=== PATIENT | female | born 1980 | race Hispanic/Latino ===

== ENCOUNTER 2017-07-26 22:45 | Inpatient (IN) | payer OTHER ==
[2017-07-26 22:46] VITALS: BMI 31.6
--- NOTE | 2017-07-26 23:21 | C.PDOC ---
History Of Present Illness 36 year old female presents to the ER as a transfer from [place] for admission. Patient has a Hx of PTSD years ago, she has been on benzodiazepines but ran out of her prescription. She was able to get an appointment with a psychiatrist for the end of August and had a small number of pills she was able to take sporadically but ran out and states she has been panicking, anxious, and having flashbacks. Denies physical complaints at this time. Patient was medically clear by [facility]. Time Seen by Provider: 07/26/17 22:48 Chief Complaint (Nursing): Psychiatric Evaluation History Per: Patient History/Exam Limitations: no limitations Onset/Duration Of Symptoms: Days Current Symptoms Are (Timing): Still Present Suicide/Self Injury Attempted (Context): None Associated Symptoms: Anxiety Involuntary Hold By: None Recent travel outside of the [place] States: No Past Medical History Reviewed: Historical Data, Nursing Documentation, Vital Signs Vital Signs: Last Vital Signs Temp 98.2 F 07/26/17 22:53 Pulse 80 07/26/17 22:53 Resp 20 07/26/17 22:53 BP 115/75 07/26/17 22:53 Pulse Ox 96 07/26/17 23:29 - Medical History PMH: Post Traumatic Stress Disorder Surgical History: Cholecystectomy Family History: States: Unknown Family Hx - Social History Hx Alcohol Use: Yes Hx Substance Use: No Review Of Systems Constitutional: Negative for: Fever, Chills Cardiovascular: Negative for: Chest Pain, Palpitations Respiratory: Negative for: Cough Gastrointestinal: Negative for: Nausea, Vomiting Psych: Positive for: Anxiety Physical Exam - Physical Exam Appears: Non-toxic Skin: Normal Color, Warm, Dry Head: Atraumatic, Normacephalic Eye(s): bilateral: Normal Inspection Oral Mucosa: Moist Neck: Normal, Supple Chest: Symmetrical, No Tenderness Cardiovascular: Rhythm Regular Respiratory: Normal Breath Sounds, No Rales, No Rhonchi, No Wheezing Gastrointestinal/Abdominal: Soft, No Tenderness Back: No CVA Tenderness Neurological/Psych: Oriented x3, Normal Speech ED Course And Treatment O2 Sat by Pulse Oximetry: 96 (Room air) Pulse Ox Interpretation: Normal Disposition - Disposition Disposition: HOSPITALIZED Disposition Time: 23:57 Condition: STABLE - Clinical Impression Clinical Impression: Moderate major depression, single episode, PTSD (post-traumatic stress disorder ) - Scribe Statement The provider has reviewed the documentation as recorded by the Scribvivek Villarreal All medical record entries made by the Carlosibvivek were at my direction and personally dictated by me. I have reviewed the chart and agree that the record accurately reflects my personal performance of the history, physical exam, medical decision making, and the department course for this patient. I have also personally directed, reviewed, and agree with the discharge instructions and disposition.
--- NOTE | 2017-07-27 02:00 | PCM.BM ---
Treatment Plan Problems - Problems identified on initial assessmt SEVERE ANXIETY Date Initiated: 07/27/17 Time Initiated: 02:05 Assessment reference: NA Status: Active DEPRESSION Date Initiated: 07/27/17 Time Initiated: 02:05 Assessment reference: NA Status: Active Treatment assets and liabiliti Patient Assests: adapts well, cooperative, educated, self-reliant, ADL independent, good support system, negotiates basic needs Patient Liabilities: dietary restrictions, medical problems - Milieu Protocol Maintain good personal hygiene: daily Encourage regular showers, daily Remind patient to perform daily oral care, daily Assist patient to perform ADL's Maintain personal safety: every shift Educate patient to report safety concerns to staff, every shift Monitor environment for contraband/sharps Medication safety: Monitor for expected outcome, potential side effects: every shift, Assess barriers to learning: every shift, Assess readiness for medication education: every shift
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
[2017-07-27] MEDS ORDERED: Aluminum Hydroxide/Magnesium Hydroxide Susp (30 mL) PO PRN (10:50)
[2017-07-28] MEDS: Divalproex 250 mg DR Tab PO SCH ×2 (11:46→17:11)
[2017-07-28] MEDS ORDERED: Lithium Carbonate 150 MG CAP PO SCH (14:00)
--- NOTE | 2017-07-29 01:15 | PCM.PYCHPN ---
Psychiatric Progress Note - Psychiatric Progress Note Patient seen today, length of contact: 15 min Patient Chief Complaint: I was feeling very anxious.' Problems Identified/Issues Discussed: Patient seen and evaluated, chart reviewed and discussed with the nurse. Patient remained irritable and agitated. She still reports racing of thoughts and flight of ideas. She remained anxious and irritable. She continued to pace back and forth in the hallways. She also reports depressed mood and feelings of hopelessness and helplessness. Patient is compliant with medications and denies any side effects. Symptoms are improving but need more time to stabilize. Support and psychoeducation given. Medication Change: Yes (d/c lithium start Depakote) Medical Record Reviewed: Yes Mental Status Examination - Cognitive Function Orientation: Person, Place, Situation, Time Memory: Intact Attention: WNL Concentration: Poor Association: Loose Fund of Knowledge: WNL - Mood Mood: Depressed, Anxious - Affect Affect: Broad - Speech Speech: Soft - Formal Thought Process Formal Thought Process: Flight of ideas, Circumstantial - Suicidal Ideation Suicidal Ideation: No - Homicidal Ideation Homicidal Ideation: No Goal/Treatment Plan - Goal/Treatment Plan Need for Continued Stay: Severe depression anxiety, Severe functional impairment Progress Toward Problem(s) and Goals/Treatment Plan: Bipolar disorder mixed severe without psychotic features Generalized anxiety disorder with panic attacks Sedative/Hypnotic use disorder moderate -CBT -Psychoeducation -Supportive therapy, group therapy, individual therapy -Gabapentin 100 mg po TID -D/C [place] 300 mg PO TID -Start Depakote 250 mg PO BID -Start Seroquel 100 mg PO QHS -Trazodone 50 mg by mouth daily at bedtime -Klonopin 1 mg PO BID prn -Ativan 1 mg po q6hr prn -Hydroxyzine 25 mg by mouth every 6 hours when necessary
[2017-07-29] MEDS: Divalproex 250 mg DR Tab PO SCH ×2 (09:29→17:06)
--- NOTE | 2017-07-29 19:15 | PCM.PYCHPN ---
Psychiatric Progress Note - Psychiatric Progress Note Patient seen today, length of contact: 15 min Patient Chief Complaint: I'm feeling better. Now I'm coming out of my room. Problems Identified/Issues Discussed: Patient seen, chart reviewed, case discussed with the staff. Issues related to illness and treatment were discussed with the patient and staff. Reported compliant with treatment with no adverse affects. Tolerating treatment very well. Feeling much better. Aftercare discussed with the patient. At the time of evaluation, patient was awake alert oriented 3, had no delusions , no auditory or visual hallucinations, no suicidal ideations or homicidal ideations. Medical Problems: Celiac disease Diagnostic Results: Reviewed DSM 5 Symptoms Update: Some improvement with treatment Medication Change: No Medical Record Reviewed: Yes Mental Status Examination - Cognitive Function Orientation: Person, Place, Situation, Time Memory: Intact Attention: WNL Concentration: WNL Association: WNL Fund of Knowledge: [facility] Decription of patient's judgement and insights: Fair - Mood Mood: Depressed (Less than before) - Affect Affect: Depressed - Speech Speech: Soft - Formal Thought Process Formal Thought Process: No Impairment Psychotic Thoughts and Behaviors: None - Suicidal Ideation Suicidal Ideation: No - Homicidal Ideation Homicidal Ideation: No Goal/Treatment Plan - Goal/Treatment Plan Need for Continued Stay: Remain at risks for inpatient hospitalization, Discharge may exacerbated symptoms, Severe functional impairment Progress Toward Problem(s) and Goals/Treatment Plan: Some improvement with treatment. Patient education. Supportive therapy. Continue treatment as before. Patient will go to [facility] for follow-up care after discharge from the hospital. Estimated Date of D/C: 08/01/17 - Smoking Cessation Smoking Cessation Initiated: No
[2017-07-30] MEDS: Divalproex 250 mg DR Tab PO SCH ×2 (10:03→17:17)
--- NOTE | 2017-07-30 19:09 | PCM.PYCHPN ---
Psychiatric Progress Note - Psychiatric Progress Note Patient seen today, length of contact: 15 min Patient Chief Complaint: I'm feeling better. Still feels anxiety at times. Problems Identified/Issues Discussed: Patient seen, chart reviewed, case discussed with the staff. Issues related to illness and treatment were discussed with the patient and staff. Reported compliant with treatment with no adverse affects. Tolerating treatment very well. Feeling better with some anxiety at times. Aftercare discussed with the patient. At the time of evaluation, patient was awake alert oriented 3, had no delusions , no auditory or visual hallucinations, no suicidal ideations or homicidal ideations. Medical Problems: Celiac disease Diagnostic Results: Reviewed DSM 5 Symptoms Update: Improving with treatment Medication Change: No Medical Record Reviewed: Yes Mental Status Examination - Cognitive Function Orientation: Person, Place, Situation, Time Memory: Intact Attention: WNL Concentration: WNL Association: WNL Fund of Knowledge: [facility] Decription of patient's judgement and insights: Fair - Mood Mood: Depressed (Much less than before) - Affect Affect: Depressed - Speech Speech: Soft - Formal Thought Process Formal Thought Process: No Impairment Psychotic Thoughts and Behaviors: None - Suicidal Ideation Suicidal Ideation: No - Homicidal Ideation Homicidal Ideation: No Goal/Treatment Plan - Goal/Treatment Plan Need for Continued Stay: Remain at risks for inpatient hospitalization, Discharge may exacerbated symptoms, Severe functional impairment Progress Toward Problem(s) and Goals/Treatment Plan: Some improvement with treatment. Patient education. Supportive therapy. Continue treatment as before. Patient will go to [facility] for follow-up care after discharge from the hospital. Estimated Date of D/C: 08/01/17 - Smoking Cessation Smoking Cessation Initiated: No
[2017-07-31] MEDS: Divalproex 250 mg DR Tab PO SCH (09:56)
--- NOTE | 2017-07-31 14:28 | PCM.PYCHPN ---
Psychiatric Progress Note - Psychiatric Progress Note Patient seen today, length of contact: 15 min Patient Chief Complaint: I was feeling very anxious.' Problems Identified/Issues Discussed: Patient seen and evaluated, chart reviewed and discussed with the nurse. Patient reports some improvement in her irritability. She still reports racing of thoughts and flight of ideas. She continued to pace back and forth in the hallways. She reports an incident of increase anxiety because of interaction with another peer. Patient is compliant with medications and denies any side effects. Symptoms are improving but need more time to stabilize. Support and psychoeducation given. Medication Change: Yes (increase depakote) Medical Record Reviewed: Yes Mental Status Examination - Cognitive Function Orientation: Person, Place, Situation, Time Memory: Intact Attention: WNL Concentration: Poor Association: WNL Fund of Knowledge: Poor - Mood Mood: Depressed (Much less than before), Anxious - Affect Affect: Constricted, Depressed - Speech Speech: Soft - Formal Thought Process Formal Thought Process: Flight of ideas - Suicidal Ideation Suicidal Ideation: No - Homicidal Ideation Homicidal Ideation: No Goal/Treatment Plan - Goal/Treatment Plan Need for Continued Stay: Remain at risks for inpatient hospitalization, Discharge may exacerbated symptoms, Severe functional impairment Progress Toward Problem(s) and Goals/Treatment Plan: Bipolar disorder mixed severe without psychotic features Generalized anxiety disorder with panic attacks Sedative/Hypnotic use disorder moderate -CBT -Psychoeducation -Supportive therapy, group therapy, individual therapy -Gabapentin 100 mg po TID -Depakote 250 mg PO Daily -Increase Depakote to 500 mg PO HS -Seroquel 100 mg PO QHS -Trazodone 50 mg by mouth daily at bedtime -Klonopin 1 mg PO BID prn -Ativan 1 mg po q6hr prn -Hydroxyzine 25 mg by mouth every 6 hours when necessary Estimated Date of D/C: 08/01/17 - Smoking Cessation Smoking Cessation Initiated: No
[2017-07-31] MEDS: Divalproex 500 mg DR Tab PO SCH (17:17)
[2017-08-01 06:33] VITALS: TEMP 98.1; O2SAT 99
[2017-08-01] MEDS ORDERED: Divalproex 250 mg DR Tab PO SCH (10:00)
[2017-08-01] MEDS ORDERED: Divalproex 250 mg DR Tab PO STA ×2 (11:15→12:04)
--- NOTE | 2017-08-01 13:53 | PCM.PYCHPN ---
Psychiatric Progress Note - Psychiatric Progress Note Patient seen today, length of contact: 15 min Patient Chief Complaint: I was feeling very anxious.' Problems Identified/Issues Discussed: Patient seen and evaluated, chart reviewed and discussed with the nurse. Patient reports some improvement in her irritability and mood. She is requesting to stay for a couple of more day. She still reports racing of thoughts but less than before She continued to pace back and forth in the hallways. Will have a family meeting today. Patient is compliant with medications and denies any side effects. Symptoms are improving but need more time to stabilize. Supportive therapy was given Medication Change: Yes (increase depakote, increase neurontin) Medical Record Reviewed: Yes Mental Status Examination - Cognitive Function Orientation: Person, Place, Situation, Time Memory: Intact Attention: WNL Concentration: Poor Association: WNL Fund of Knowledge: Poor - Mood Mood: Depressed (Much less than before), Anxious - Affect Affect: Constricted, Depressed - Speech Speech: Soft - Formal Thought Process Formal Thought Process: Flight of ideas - Suicidal Ideation Suicidal Ideation: No - Homicidal Ideation Homicidal Ideation: No Goal/Treatment Plan - Goal/Treatment Plan Need for Continued Stay: Remain at risks for inpatient hospitalization, Discharge may exacerbated symptoms, Severe functional impairment Progress Toward Problem(s) and Goals/Treatment Plan: Bipolar disorder mixed severe without psychotic features Generalized anxiety disorder with panic attacks Sedative/Hypnotic use disorder moderate -CBT -Psychoeducation -Supportive therapy, group therapy, individual therapy -Increase Gabapentin 300 mg po TID -Increase Depakote to 500 mg PO Daily -Depakote to 500 mg PO HS -Seroquel 100 mg PO QHS -Trazodone 50 mg by mouth daily at bedtime -Reduce Klonopin 1 mg PO qPM -Ativan 1 mg po q6hr prn -Hydroxyzine 25 mg by mouth every 6 hours when necessary Estimated Date of D/C: 08/01/17
[2017-08-01] MEDS: Divalproex 500 mg DR Tab PO SCH (17:03)
[2017-08-02] MEDS: Divalproex 500 mg DR Tab PO SCH ×2 (09:46→17:47)
--- NOTE | 2017-08-02 11:11 | PCM.PYCHPN ---
Psychiatric Progress Note - Psychiatric Progress Note Patient seen today, length of contact: 15 min Patient Chief Complaint: I was feeling less anxious.' Problems Identified/Issues Discussed: Patient seen and evaluated, chart reviewed and discussed with the nurse. Family meeting held yesterday, reports pt appears little better than before Patient reports some improvement in her irritability and mood but still reports difficulty in sleeping. She still reports racing of thoughts but less than before She is requesting to stay for a couple of more day. Patient is compliant with medications and denies any side effects. Symptoms are improving but need more time to stabilize. Supportive therapy was given Medication Change: Yes (increase trazodone) Medical Record Reviewed: Yes Mental Status Examination - Cognitive Function Orientation: Person, Place, Situation, Time Memory: Intact Attention: WNL Concentration: Poor Association: WNL Fund of Knowledge: Poor - Mood Mood: Depressed (Much less than before), Anxious - Affect Affect: Constricted, Depressed - Speech Speech: Soft - Formal Thought Process Formal Thought Process: Flight of ideas - Suicidal Ideation Suicidal Ideation: No - Homicidal Ideation Homicidal Ideation: No Goal/Treatment Plan - Goal/Treatment Plan Need for Continued Stay: Remain at risks for inpatient hospitalization, Discharge may exacerbated symptoms, Severe functional impairment Progress Toward Problem(s) and Goals/Treatment Plan: Bipolar disorder mixed severe without psychotic features Generalized anxiety disorder with panic attacks Sedative/Hypnotic use disorder moderate -CBT -Psychoeducation -Supportive therapy, group therapy, individual therapy -Gabapentin 300 mg po TID -Depakote to 500 mg PO Daily -Depakote to 500 mg PO HS -Seroquel 100 mg PO QHS -Increase Trazodone 100 mg by mouth daily at bedtime -Reduce Klonopin 1 mg PO qPM -Ativan 1 mg po q6hr prn -Hydroxyzine 25 mg by mouth every 6 hours when necessary Estimated Date of D/C: 08/01/17
[2017-08-03 06:35] VITALS: RESP 18
[2017-08-03 09:11] VITALS: BP 109/74; PULSE 91
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
[2017-08-03] MEDS: Divalproex 500 mg DR Tab PO SCH (11:00)
== END 2017-08-03 12:28 | disposition home or self-care (01) | DRG 885 ==
LOC: C.ER 22:45 → C.5E 23:11
PROC: GZHZZZZ Group Psychotherapy (ICD-10-PCS; principal; 2017-07-26)
PROC: GZ58ZZZ Individual Psychotherapy, Cognitive-Behavioral (ICD-10-PCS; 2017-07-26)
PROC: GZ56ZZZ Individual Psychotherapy, Supportive (ICD-10-PCS; 2017-07-26)
DX: F31.63 Bipolar disorder, current episode mixed, severe, without psychotic features (principal); F13.20 Sedative, hypnotic or anxiolytic dependence, uncomplicated; R45.851 Suicidal ideations; F41.0 Panic disorder [episodic paroxysmal anxiety]; F41.1 Generalized anxiety disorder; F43.10 Post-traumatic stress disorder, unspecified; K90.0 Celiac disease; Z91.410 Personal history of adult physical and sexual abuse